=== PATIENT | female | born 1950 | race Caucasian/White ===

== ENCOUNTER 2020-04-23 10:54 | Day surgery (SDC) | payer MEDICARE, OTHER ==
[~2020-04-23] VITALS: Ht 160 cm; Wt 55.9 kg
[2020-04-23] VITALS (10 sets, daily range): BP systolic 93–133; BP diastolic 56–82
[2020-04-23] MEDS ORDERED: diphenhydrAMINE 25mg capsule PO PRN (11:30)
[2020-04-23] MEDS ORDERED: normal saline 1,000 ML IV SCH (11:30)
[2020-04-23] MEDS ORDERED: ASPI-1265 PO (11:31)
[2020-04-23] MEDS ORDERED: OSC500T PO (11:31)
[2020-04-23] MEDS ORDERED: FLUT16SP20 BOTHNARES (11:31)
[2020-04-23] MEDS ORDERED: OMEG1CAP20 PO (11:31)
[2020-04-23] MEDS ORDERED: CHOL400T57 PO (11:31)
[2020-04-23 11:52] LABS: BASOPHILS # (AUTO) 0.1 X10'3 (0-0.2); BASOPHILS % (AUTO) 0.9 % (0-1); EOSINOPHILS # (AUTO) 0.1 X10'3 (0-0.9); EOSINOPHILS % (AUTO) 0.8 % (0-6); LYMPHOCYTES # (AUTO) 1.8 X10'3 (1.1-4.8); LYMPHOCYTES % (AUTO) 25.9 % (21-51); MEAN CORPUSCULAR HEMOGLOBIN 32.2 PG (27.0-31.0); MEAN CORPUSCULAR HGB CONC 34.1 g/dL (33.0-36.5); MEAN CORPUSCULAR VOLUME 94.6 FL (78-98); MEAN PLATELET VOLUME 8.4 FL (7.4-10.4); MONOCYTES # (AUTO) 0.6 X10'3 (0-0.9); MONOCYTES % (AUTO) 8.9 % (2-12); NEUTROPHILS # (AUTO) 4.5 X10'3 (1.8-7.7); NEUTROPHILS % (AUTO) 63.5 % (42-75); PLATELET COUNT 299 X10'3 (140-440); RED BLOOD COUNT 4.34 X10'6 (4.20-5.60); RED CELL DISTRIBUTION WIDTH 13.6 % (11.5-14.5)
[2020-04-23] MEDS ORDERED: midazolam 1 mg/ML 2ml injection ONE (11:52)
[2020-04-23] MEDS ORDERED: fentaNYL/PF 50MCG/1 ML 2ML syringe ONE (11:52)
[2020-04-23] MEDS ORDERED: LIDOcaine 1% (10mg/ml)w/preservative injection 20ml MDV ONE (11:52)
[2020-04-23] MEDS ORDERED: heparin 1,000unit/ml 10ml vial 10 ML ONE (11:52)
[2020-04-23] MEDS ORDERED: iohexol 350MG/ML 100ml bottle IV ONE (11:52)
[2020-04-23 12:00] LABS: ALBUMIN 4.3 G/DL (3.4-5.0); ANION GAP 10 (8-16); BLOOD UREA NITROGEN 15 MG/DL (7-18); CALCIUM 9.3 MG/DL (8.5-10.1); CHLORIDE 103 MMOL/L (99-107); CREATININE 0.94 MG/DL (0.40-0.90); GLUCOSE 94 MG/DL (70-104); MAGNESIUM 2.2 MG/DL (1.5-2.4); SODIUM 139 MMOL/L (135-145); TOTAL CARBON DIOXIDE 26.4 MMOL/L (24-32); eGFR 59 ML/MIN
[2020-04-23] MEDS ORDERED: ondansetron/PF 4mg/2ml inj IV PRN (14:25)
[2020-04-23] MEDS ORDERED: HYDROcodone/acetaminophen 10/325mg tab PO PRN (14:25)
[2020-04-23] MEDS ORDERED: HYDROcodone/acetaminophen 5mg/325mg tablet PO PRN (14:25)
[2020-04-23] MEDS ORDERED: normal saline 1000ml 1,000 ML IV SCH (14:25)
[2020-04-23] MEDS ORDERED: proCHLORperazine 10 MG/2 ml inj IV PRN (14:25)
== END 2020-04-23 17:51 | disposition home or self-care (01) ==
LOC: SSTAY O 10:54
PROVIDERS: ATTEND Internal Medicine Cardiovascular Disease
DX: I08.1 Rheumatic disorders of both mitral and tricuspid valves (principal); I47.2 Ventricular tachycardia; Z95.2 Presence of prosthetic heart valve; Z98.890 Other specified postprocedural states; Z95.818 Presence of other cardiac implants and grafts; Z87.891 Personal history of nicotine dependence; Z79.899 Other long term (current) drug therapy; Z79.82 Long term (current) use of aspirin; Z82.49 Family history of ischemic heart disease and other diseases of the circulatory system
CPT/HCPCS: 36415; 80048; 83735; 85025; 85610; 93005; 93458; 99152; C1760; C1769; C1894; J1644; J2001; J2250; J3010; J7030; Q0163; Q9967; 99153; A4620; A6258